=== PATIENT | female | born 2000 | race Two or more races ===

== ENCOUNTER 2023-12-16 21:42 | Emergency (ER) | payer MEDICAID, OTHER ==
[~2023-12-16] VITALS: Ht 160 cm; Wt 53.2 kg
[2023-12-16 23:11] LABS: COVID19 ANTIGEN SOFIA FIA NEGATIVE (NEGATIVE); Rapid Influenza A Negative (Negative); Rapid Influenza B Negative (Negative)
[2023-12-17] MEDS ORDERED: cefTRIAXone SOD 1,000 MG VL IM ONE (00:45)
[2023-12-17] MEDS ORDERED: LIDOCAINE VISCOUS 2% 15ML UD MT ONE (00:45)
[2023-12-17] MEDS ORDERED: DexAMETHasone SOD PHOS 10MG/1ML VIAL INJ IM ONE (00:45)
[2023-12-17] MEDS ORDERED: IBUPROFEN 600 MG TAB PO ONE (00:45)
[2023-12-17] MEDS ORDERED: CLIN150C18 PO (00:50)
[2023-12-17] MEDS ORDERED: PRE1T PO (00:50)
[2023-12-17] MEDS ORDERED: BENZ200C64 PO (00:50)
[2023-12-17] MEDS ORDERED: ALBUAER3 IN (00:50)
[2023-12-17] MEDS ORDERED: IBUP-1453 PO (00:50)
[2023-12-17] MEDS ORDERED: ZOFR4T PO (00:54)
[2023-12-17] MEDS ORDERED: ONDANSETRON ODT 4 MG TAB PO ONE (01:00)
[2023-12-17 03:31] VITALS: BP 115/76; PULSE 72; RESP 18; TEMP 98; O2SAT 98
== END 2023-12-17 06:41 | disposition home or self-care (01) ==
LOC: ER 21:42
DX: J03.90 Acute tonsillitis, unspecified (principal); R05.9 Cough, unspecified; H92.09 Otalgia, unspecified ear; Z79.1 Long term (current) use of non-steroidal anti-inflammatories (NSAID); Z79.2 Long term (current) use of antibiotics; Z79.899 Other long term (current) drug therapy; Z20.822 Contact with and (suspected) exposure to COVID-19
CPT/HCPCS: 36415; 87426; 87804; 96372; 99284; J0696; J1100; Q0162

== ENCOUNTER 2025-02-19 21:05 | Emergency (ER) | payer MEDICAID ==
[~2025-02-19] VITALS: Ht 160 cm; Wt 45.3 kg
[~2025-02-19 21:05] MED LIST: ALBUAER3 IN; BENZ200C64 PO; CLIN150C18 PO; IBUP-1453 PO; PRE1T PO; ZOFR4T PO
[2025-02-19 21:42] VITALS: BP 122/76; PULSE 69; RESP 16; TEMP 97.9; O2SAT 98
[2025-02-21] MEDS ORDERED: ACET500T58 PO (03:29)
[2025-02-21] MEDS ORDERED: CEPH500C PO (03:57)
== END 2025-02-20 00:33 | disposition left against medical advice (07) ==
LOC: ER 21:05
DX: M54.50 Low back pain, unspecified (principal); Z53.21 Procedure and treatment not carried out due to patient leaving prior to being seen by health care provider

== ENCOUNTER 2025-02-21 01:58 | Emergency (ER) | payer MEDICAID ==
[~2025-02-21] VITALS: Ht 162.6 cm; Wt 43.6 kg
[2025-02-21 03:23] VITALS: BP 128/79; PULSE 79; RESP 18; TEMP 97.9; O2SAT 97
[2025-02-21] MEDS ORDERED: ACET500T58 PO (03:29)
--- NOTE | 2025-02-21 03:30 | ED.PDOC ---
Back pain HPI HPI Comments 24 year old female presents to ER with complaints of back pain x 3 months. Patient reports she has been experiencing intermittent lower lumbar back pain x 3 months that started with "standing long hours at work". She rates her current pain a 10/10 diffuse to lower lumbar region with radiation towards mid back. Notes she's been taking Tylenol for her pain with some relief. Patient presents to ER ambulatory on arrival, with steady gait, in no distress. Denies fever, body aches, chills, night sweats, n/v, shortness of breath, trauma/falls, chest pain, abdominal/pelvic pain, changes in urination/bm or any further symptoms/complaints Chief Complaint: Back Pain Time Seen by MD: 02:03 Primary Care Provider: PERICO Reviewed Notes: Nurses Notes, Medications, Allergies Allergies: Coded Allergies: NO KNOWN ALLERGIES (Unverified , 12/16/23) Home Meds Active Scripts Cephalexin Monohydrate (Cephalexin) 500 Mg Cap, 1 CAP PO BID for 7 Days, #14 CAP 0 Refills Prov:KAYLYN REIS 02/21/25 Acetaminophen (Acetaminophen) 500 Mg Tab, 500 MG PO Q4HPRN, #30 TAB 0 Refills Prov:KAYLYN REIS 02/21/25 Ondansetron Odt 4MG Tab (ZOFRAN PO) 4 Mg Tb, 1 TAB PO Q8HPRN PRN, #1 TAB ODT TAB-DISSOLVE IN MOUTH, THEN SWALLOW as needed for nausea vomit Prov:FLOWER RAYAA Q [employer] 12/17/23 Ibuprofen (Ibuprofen) 400 Mg Tab, 1 TAB PO Q6HPRN, #20 TAB As needed for pain Prov:FLOWER RAYAA Q [employer] 12/17/23 Benzonatate (Benzonatate) 200 Mg Cap, 1 CAP PO TID, #30 CAP As needed for cough Prov:FLOWER RAYAA Q [employer] 12/17/23 Albuterol Sulfate (VENTOLIN MDI) 90 Mcg Ih, 1 PUFF IN Q4HPRN PRN, #1 INH As needed for cough nasal congestion or shortness of breath Prov:FLOWER RAYAA Q [employer] 12/17/23 Prednisone (PREDNISONE) 1 Mg Tb, 1 MG PO DAILY for 5 Days, #5 TAB Start tomorrow with food Prov:SHADI RAYA Q [employer] 12/17/23 Clindamycin Hcl (Clindamycin Hcl) 150 Mg Cap, 1 TAB PO QID for 10 Days, #40 CAP Prov:SHADI RAYA Q [employer] 12/17/23 Information Source: Patient Mode of Arrival: Ambulatory Past Medical History PAST MEDICAL HISTORY: Denies Surgical History: Denies all surgeries CHOIRMASTER History: No Pertinent CHOIRMASTER History Family History Family History: Unknown Social History Smoker: Non-Smoker Alcohol: Denies ETOH Use Drugs: Denies Drug Use Lives In: Home Constitutional: denies: chills, diaphoresis, fatigue, fever, malaise, sweats, weakness, others EENTM: denies: blurred vision, double vision, ear bleeding, ear discharge, ear drainage, ear pain, ear ringing, eye pain, eye redness, hearing loss, mouth pain, mouth swelling, nasal discharge, nose bleeding, nose congestion, nose pain, photophobia, tearing, throat pain, throat swelling, voice changes, others Respiratory: denies: cough, hemoptysis, orthopnea, SOB at rest, shortness of breath, SOB with excertion, stridor, wheezing, others Cardiovascular: denies: chest pain, dizzy spells, diaphoresis, Dyspnea on exertion, edema, irregular heart beat, left arm pain, lightheadedness, palpitations, PND, syncope, others Gastrointestinal: denies: abdomen distended, abdominal pain, blood streaked bowels, constipated, diarrhea, dysphagia, difficulty swallowing, hematemesis, melena, nausea, poor appetite, poor fluid intake, rectal bleeding, rectal pain, vomiting, others Genitourinary: denies: abnormal vagina bleeding, burning, dyspareunia, dysuria, flank pain, frequency, hematuria, incontinence, pain, , vagina discharge, urgency, others Neurological: denies: dizziness, fainting, headache, left sided numbness, left sided weakness, numbness, paresthesia, pre-existing deficit, right sided numbness, right sided weakness, seizure, speech problems, tingling, tremors, weakness, others Musculoskeletal: reports: others ( STATED IN HPI) Integumetry: denies: bruises, change in color, change in hair/nails, dryness, laceration, lesions, lumps, rash, wounds, others Allergic/Immunocompromised: denies: Difficulty Healing, Frequent Infections, Hives, Itching, others Hematologic/Lymphatic: denies: anemia, blood clots, easy bleeding, easy bruising, swollen glands, others Endocrine: denies: excessive hunger, excessive sweating, excessive thirst, excessive urination, flushing, intolerance to cold, intolerance to heat, unexplained weight gain, unexplained weight loss, others Psychiatric: denies: anxiety, bipolar disorder, depression, hopeless, panic disorder, schizophrenia, sleepless, suicidal, others Physical Exam General Appearance: No Apparent Distress HEENT: PERRL/EOMI Neck: Full Range of Motion, Non-Tender, Normal Respiratory: Chest Non-Tender, Lungs Clear, No Accessory Muscle Use, No Respiratory Distress, Normal Breath Sounds Cardiovascular: No Murmur, No Gallop, Regular Rate/Rhythm Breast Exam: Deferred Gastrointestinal: Non Tender, No Pulsatile Mass, Soft Genitalia: Deferred Pelvic: Deferred Rectal: Deferred Extremities: No calf tenderness, Normal capillary refill, Normal range of motion Musculoskeletal : Extremity Location: Back (SLIGHT TTP TO BILATERAL LOWER LUMBAR PARASPINALS NOTED. NO BONY TENDERNESS TO SPINE APPRECIATED. NO TTP TO BILATERAL FLANKS/CVA TENDERNESS NOTED BILATERALLY. NO SKIN CHANGES NOTED. GAIT INTACT WITHOUT ABN ORMALITY) Neurologic: Alert, fixed income analyst II-XII nml as Tested, No Motor Deficits, Normal Affect, Normal Mood, No Sensory Deficits Cerebellar Function: Normal Reflexes: Normal Skin: Dry, Normal Color, Warm Peripheral Pulses: 2+ femoral (R), 2+ femoral (L), 2+ dorsalis pedis (R), 2+ dorsalis pedis (L) Lymphatic: No Adenopathy Was a procedure done? Was a procedure done?: No Sedation Sedation?: No Back Pain Differential Dx Differential Diagnosis: Fracture, Pyelonephritis, Strain X-Ray, Labs, Meds, VS Vital Signs Date Time Temp Pulse Resp B/P (MAP) Pulse Ox O2 Delivery O2 Flow Rate FiO2 02/21/25 03:23 97.9 79 18 128/79 (95) 97 97.9 02/21/25 03:23 79 18 97 Room Air 02/21/25 02:05 97.9 79 18 128/79 (95) 97 97.9 Lab Test 02/21/25 02:10 Range/Units Urine Color Colorless Yellow Urine Clarity Turbid H Clear Urine pH 5.5 5.0-9.0 Urine Specific [place] 1.021 1.001-1.035 Urine Protein Negative Negative Urine Ketones Negative Negative Urine Blood Negative Negative /uL Urine Nitrite Negative Negative Urine Bilirubin Negative Negative Urine Urobilinogen Normal Negative mg/dL Urine Leukocyte Esterase 3+ Negative /uL Urine RBC 5 0 - 4 /hpf Urine Microscopic WBC 122 H 0-5 /HPF Urine Squamous Epithelial Cells Mod <5 /hpf Urine Bacteria Few H None Seen /hpf Urine Mucus Few None Seen Urine Glucose Normal Normal mg/dL URINALYSIS REVIEWED-URINE LEUKOCYTE ESTERASE 3+, URINE BLOOD NEGATIVE, URINE NITRITES NEGATIVE TYLENOL 650 MG P.O. ORDERED ADVISED TO DRINK PLENTY OF FLUIDS ADVISED TO FOLLOW UP WITH PCP IN 1-2 DAYS PATIENT VERBALIZED UNDERSTANDING AND AGREEABLE WITH CURRENT PLAN OF CARE ADVISED TO RETURN TO ER IMMEDIATELY IF SYMPTOMS WORSEN Time of 1ST Reevaluation: 03:02 Reevaluation 1ST: N/A Patient Education/Counseling: Diagnosis, Treatment, Prognosis, Need For Follow Up Family Education/Counseling: No Family Present Departure 1 Departure Time of Disposition: 03:22 Impression: Primary Impression: Lumbar strain Qualified Codes: S39.012A - Strain of muscle, fascia and tendon of lower back, initial encounter Additional Impression: UTI (urinary tract infection) Qualified Codes: N30.00 - Acute cystitis without hematuria Disposition: 01 HOME / SELF CARE / HOMELESS Condition: Stable e-Prescriptions Cephalexin Monohydrate (Cephalexin) 500 Mg Cap 1 CAP PO BID for 7 Days, #14 CAP 0 Refills Prov: KAYLYN REIS 02/21/25 Acetaminophen (Acetaminophen) 500 Mg Tab 500 MG PO Q4HPRN, #30 TAB 0 Refills Prov: KAYLYN REIS 02/21/25 Discharged With: Self Critical Care Note Critical Care Time?: No Stability Stability form required: No Heart Score Heart Score: Heart Score Response (Comments) Value History N/A 0 EKG N/A 0 Age N/A 0 Risk Factors N/A 0 Troponin N/A 0 Total 0 KAYLYN REIS Feb 21, 2025 03:30
[2025-02-21 03:41] LABS: Urine Bacteria FEW /hpf (None Seen); Urine Blood Negative /uL (Negative); Urine Clarity Turbid (Clear); Urine Color Colorless (Yellow); Urine Mucus FEW (None Seen); Urine Protein, UAD Negative (Negative); Urine Specific Gravity 1.021 (1.001-1.035); Urine Squamous Epithelial Cell MOD /hpf (<5); Urine Urobilinogen Normal (Negative); Urine WBC 122 /HPF (0-5); Urine pH 5.5 (5.0-9.0)
[2025-02-21] MEDS ORDERED: CEPH500C PO (03:57)
[2025-02-21] MEDS: ACETAMINOPHEN 325 MG TAB PO ONE (04:16)
== END 2025-02-21 04:18 | disposition home or self-care (01) ==
LOC: ER 01:58
DX: S39.012A Strain of muscle, fascia and tendon of lower back, initial encounter (principal); N39.0 Urinary tract infection, site not specified; Z79.52 Long term (current) use of systemic steroids; X58.XXXA Exposure to other specified factors, initial encounter; Y93.89 Activity, other specified; Y92.89 Other specified places as the place of occurrence of the external cause; Y99.8 Other external cause status
CPT/HCPCS: 81001